=== PATIENT | female | born 1940 | race Caucasian/White ===

== ENCOUNTER 2018-09-08 18:33 | Emergency (ER) | payer MEDICARE ==
--- NOTE | 2018-09-08 21:25 | EDM.PDOC ---
ED HPI GENERAL MEDICAL PROBLEM - General Chief Complaint: Abdominal Pain Stated Complaint: ILLNESS STOMACH PAIN Time Seen by Provider: 09/08/18 21:17 Source of Information: Reports: Patient History Limitations: Reports: No Limitations - History of Present Illness INITIAL COMMENTS - FREE TEXT/NARRATIVE: pt arrived stating that when she is walking she has felt like she could fall forward. She has had slight nausea. pt was very confusing with her history she stated that she had abdomanal pain earlier and then stated that she did not. Onset: Gradual, Other ( Last 2 days. ) Duration: Hour(s): Location: Reports: Head Associated Symptoms: Reports: Other (pt feels like she is going to fall forwaRD WHEN SHE IS WALKING AT TIMES. 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: Hematologic History: Reports: Anticoagulation Therapy - Infectious Disease History Infectious Disease History: Reports: Measles, Mumps - Past Surgical History Female Surgical History: Reports: Hysterectomy Social & Family History - Tobacco Use Smoking Status *Q: Never Smoker - Caffeine Use Caffeine Use: Reports: None - Recreational Drug Use Recreational Drug Use: No ED ROS GENERAL - Review of Systems Review Of Systems: See Below Constitutional: Reports: No Symptoms HEENT: Reports: No Symptoms Respiratory: Reports: No Symptoms Cardiovascular: Reports: No Symptoms Endocrine: Reports: No Symptoms GI/Abdominal: Reports: No Symptoms : Reports: No Symptoms Musculoskeletal: Reports: No Symptoms Skin: Reports: No Symptoms Neurological: Reports: Other (PT IS FEELING LIKE SHE IS GOING TO FALL FORWARD. ) Psychiatric: Reports: No Symptoms, Homicidal Ideation ED EXAM, GI/ABD - Physical Exam Exam: See Below Text/Narrative:: PT ARRIVED WITH A VAGUE COMPLAINT OF FEELING LIKE SHE IS GOING TO FALL FORWARD ONCE IN AWHILE. sHE DID SIGN IN WITH ABDOMANAL PAIN. sHE DOES ADMIT TO SOME NAUSEA. EARLIER TODAY BUT SHE IS NOT NAUSEATED AT THIS TIME. Exam Limited By: No Limitations General Appearance: Alert, No Apparent Distress, Anxious, Other (PUPILS ARE EQUAL AND REACTIVE. ) Ears: Normal TMs Nose: Normal Inspection Throat/Mouth: Normal Inspection Head: Atraumatic Neck: Normal Inspection Respiratory/Chest: No Respiratory Distress Cardiovascular: Regular Rate, Rhythm, Other (PT HAS A PAST HISTORY OF ATRIAL FIB AND IS ON LOW DOSE COUMADIN. ) GI/Abdominal Exam: Other (PT HAS NO ABDOMANAL TENDERNESS. ) (Female) Exam: Deferred Rectal (Female) Exam: Deferred Back Exam: Normal Inspection Extremities: Normal Inspection Neurological: Alert, Oriented, Normal Cognition Psychiatric: Anxious Course - Vital Signs Last Recorded V/S: Last Vital Signs Temp 35.9 C 09/08/18 19:06 Pulse 63 09/08/18 21:27 Resp 16 09/08/18 19:06 BP 189/73 H 09/08/18 21:27 Pulse Ox 95 09/08/18 21:27 Orthostatic Blood Pressure [ 189/67 Standing] Orthostatic Blood Pressure [ 190/74 Sitting] Orthostatic Blood Pressure [ 198/75 Supine] - Orders/Labs/Meds Orders: Active Orders 24 hr Category Date Time Status EKG Documentation Completion [RC] ASDIRECTED Care 09/08/18 19:32 Active Orthostatic Vital Signs [RC] ASDIRECTED Care 09/08/18 19:33 Active EKG 12 Lead [EK] Routine Ther 09/08/18 19:32 Ordered Labs: Laboratory Tests 09/08/18 09/08/18 09/08/18 Range/Units 19:23 19:23 19:31 WBC 4.7 (4.5-11.0) K/uL RBC 4.22 (3.30-5.50) M/uL Hgb 13.3 (12.0-15.0) g/dL Hct 37.9 (36.0-48.0) % MCV 90 (80-98) fL MCH 32 H (27-31) pg MCHC 35 (32-36) % Plt Count 156 (150-400) K/uL Neut % (Auto) 62 (36-66) % Lymph % (Auto) 16 L (24-44) % [place] % (Auto) 12 H (2-6) % Eos % (Auto) 9 H (2-4) % Baso % (Auto) 1 (0-1) % PT 15.3 H (9.5-12.0) sec INR 1.45 H (0.80-1.20) Sodium 134 L (140-148) mmol/L Potassium 4.0 (3.6-5.2) mmol/L Chloride 100 (100-108) mmol/L Carbon Dioxide 25 (21-32) mmol/L Anion Gap 13.0 (5.0-14.0) mmol/L BUN 12 (7-18) mg/dL Creatinine 0.7 (0.6-1.0) mg/dL Est Cr Clr Drug Dosing 48.34 mL/min Estimated GFR (MDRD) > 60 (>60) Glucose 155 H (74-106) mg/dL Calcium 8.8 (8.5-10.1) mg/dL Total Bilirubin 1.6 H (0.2-1.0) mg/dL AST 30 (15-37) U/L ALT 27 (12-78) U/L Alkaline Phosphatase 197 H (46-116) U/L C-Reactive Protein (0.0-0.3) mg/dL Total Protein 7.4 (6.4-8.2) g/dL Albumin 3.2 L (3.4-5.0) g/dL Globulin 4.2 H (2.3-3.5) g/dL Albumin/Globulin Ratio 0.8 L (1.2-2.2) Urine Color Urine Appearance Urine pH (4.5-8.0) Ur Specific [place] (1.008-1.030) Urine Protein (NEGATIVE) mg/dL Urine Glucose (UA) (NEGATIVE) mg/dL Urine Ketones (NEGATIVE) mg/dL Urine Occult Blood (NEGATIVE) Urine Nitrite (NEGATIVE) Urine Bilirubin (NEGATIVE) Urine Urobilinogen (NORMAL) mg/dL Ur Leukocyte Esterase (NEGATIVE) Urine RBC (0-5) Urine WBC (0-5) Ur Epithelial Cells Amorphous Sediment Urine Bacteria Urine Mucus 09/08/18 09/08/18 Range/Units 20:01 20:13 WBC (4.5-11.0) K/uL RBC (3.30-5.50) M/uL Hgb (12.0-15.0) g/dL Hct (36.0-48.0) % MCV (80-98) fL MCH (27-31) pg MCHC (32-36) % Plt Count (150-400) K/uL Neut % (Auto) (36-66) % Lymph % (Auto) (24-44) % [place] % (Auto) (2-6) % Eos % (Auto) (2-4) % Baso % (Auto) (0-1) % PT (9.5-12.0) sec INR (0.80-1.20) Sodium (140-148) mmol/L Potassium (3.6-5.2) mmol/L Chloride (100-108) mmol/L Carbon Dioxide (21-32) mmol/L Anion Gap (5.0-14.0) mmol/L BUN (7-18) mg/dL Creatinine (0.6-1.0) mg/dL Est Cr Clr Drug Dosing mL/min Estimated GFR (MDRD) (>60) Glucose (74-106) mg/dL Calcium (8.5-10.1) mg/dL Total Bilirubin (0.2-1.0) mg/dL AST (15-37) U/L ALT (12-78) U/L Alkaline Phosphatase (46-116) U/L C-Reactive Protein 0.16 (0.0-0.3) mg/dL Total Protein (6.4-8.2) g/dL Albumin (3.4-5.0) g/dL Globulin (2.3-3.5) g/dL Albumin/Globulin Ratio (1.2-2.2) Urine Color Yellow Urine Appearance Clear Urine pH 7.0 (4.5-8.0) Ur Specific [place] 1.005 L (1.008-1.030) Urine Protein Negative (NEGATIVE) mg/dL Urine Glucose (UA) Normal (NEGATIVE) mg/dL Urine Ketones Negative (NEGATIVE) mg/dL Urine Occult Blood Negative (NEGATIVE) Urine Nitrite Negative (NEGATIVE) Urine Bilirubin Negative (NEGATIVE) Urine Urobilinogen Normal (NORMAL) mg/dL Ur Leukocyte Esterase Negative (NEGATIVE) Urine RBC Not seen (0-5) Urine WBC 0-5 (0-5) Ur Epithelial Cells Few Amorphous Sediment Not seen Urine Bacteria Not seen Urine Mucus Not seen - Re-Assessments/Exams Free Text/Narrative Re-Assessment/Exam: 09/08/18 23:10 PT ARRIVED WITH VAGUE HISTORY. sHE STATES WHEN SHE IS WALKING SHE FEELS LIKE SHE IS GOING TO FALL FORWARD. sHE WAS NAUSEATED BUT DID NOT VOMIT. sHE HAS NOT HAD ABDOMANAL PAIN. I 09/08/18 23:12 PT HAD A NORMAL WBC. sHE HAS A ELEVATED ALK PHOS AND HER BILIRUBIN IS ELEVATED. hER iNR IS ON THE LOWER SIDE. sHE IS IN A SINUS RHYTHM. hER ORTHOSTATICS WERE GOOD. sHE HAD A CAT SCAN OF THE HEAD WHICH WAS NORMAL. X Departure - Departure Time of Disposition: 22:56 Disposition: Home, Self-Care 01 Condition: Fair Clinical Impression: Balance problem, Elevated liver enzymes - Discharge Information Referrals: PCP,None [Primary Care Provider] - Forms: ED Department Discharge Care Plan Goals: continue same meds, rtc for a limited abdoman US, encourage fluids. - My Orders Last 24 Hours: My Active Orders 09/08/18 19:32 EKG Documentation Completion [RC] ASDIRECTED EKG 12 Lead [EK] Routine 09/08/18 19:33 Orthostatic Vital Signs [RC] ASDIRECTED - Assessment/Plan Last 24 Hours: My Active Orders 09/08/18 19:32 EKG Documentation Completion [RC] ASDIRECTED EKG 12 Lead [EK] Routine 09/08/18 19:33 Orthostatic Vital Signs [RC] ASDIRECTED
--- NOTE | 2018-09-08 22:12 | CRLCT ---
Indication: Falling forward Technique: Nonenhanced axial CT imaging through the head. Coronal reconstructions are provided. Comparison: None Findings: There is no intracranial hemorrhage, edema, or mass effect. There is mild hypodensity of the periventricular white matter likely related to chronic microvascular ischemic change. Intracranial atherosclerotic disease is noted. The ventricles are normal in size. The basal cisterns are patent. The calvarium is intact. The visualized paranasal sinuses and mastoid air cells are well aerated. Impression: No acute intracranial process. Please note that all CT scans at this facility use dose modulation, iterative reconstruction, and/or weight-based dosing when appropriate to reduce radiation dose to as low as reasonably achievable. Dictated by Jairo Ellis MD @ Sep 08 2018 10:09PM Signed by Dr. Jairo Ellis @ Sep 08 2018 10:11PM
== END 2018-09-08 23:18 | disposition home or self-care (01) ==
LOC: JP.ED 18:33
DX: R74.8 Abnormal levels of other serum enzymes (principal); R26.89 Other abnormalities of gait and mobility; I48.91 Unspecified atrial fibrillation; I10 Essential (primary) hypertension; Z88.8 Allergy status to other drugs, medicaments and biological substances; Z79.899 Other long term (current) drug therapy; Z79.01 Long term (current) use of anticoagulants
CPT/HCPCS: 36415; 70450; 80053; 81001; 85025; 85610; 86140; 93005; 93010; 99284; 99284-25

== ENCOUNTER 2018-11-22 17:54 | Emergency (ER) | payer MEDICARE ==
--- NOTE | 2018-11-22 19:59 | EDM.PDOC ---
ED HPI GENERAL MEDICAL PROBLEM - General Chief Complaint: General Stated Complaint: NECK/BACK PELVIC WARMTH??, DIZZINESS Time Seen by Provider: 11/22/18 19:45 Source of Information: Reports: Patient History Limitations: Reports: No Limitations - History of Present Illness INITIAL COMMENTS - FREE TEXT/NARRATIVE: Crystal is a 78 year old female who presents to the ED today with very vague complaints. Patient reports that at times when she bends over and then stands up she has a warm sensation that goes down her back. This happened earlier today. No symptoms currently Patient is hypertensive but reports she always is here and in clinic and her blood pressure at home is 146 systolic. Patient denies any headache, chest pain, back pain fever chills or sob. Patient had extensive work up here about a month ago which was negative for any acute findings. She has also seen her clinic provider who did "blood work" and found nothing but told patient she likely just needs to get up slower which she doesn' t do. 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 ED EXAM, GENERAL - Physical Exam Exam: See Below Exam Limited By: No Limitations General Appearance: Alert, WD/WN, No Apparent Distress Eye Exam: Bilateral Eye: EOMI, PERRL Nose: Normal Inspection Throat/Mouth: Normal Oropharynx Head: Atraumatic, Normocephalic Neck: Normal Inspection, Supple, Non-Tender Respiratory/Chest: No Respiratory Distress, Lungs Clear, Normal Breath Sounds Cardiovascular: Normal Peripheral Pulses, Regular Rate, Rhythm, No Murmur, Other (Hypertensive) Extremities: Normal Inspection, Normal Range of Motion Neurological: Alert, Oriented, CN II-XII Intact, Normal Cognition, Normal Gait, No Motor/Sensory Deficits Psychiatric: Normal Affect, Normal Mood Skin Exam: Warm, Dry, Intact Lymphatic: No Adenopathy Course - Vital Signs Last Recorded V/S: Last Vital Signs Temp 36.6 C 11/22/18 19:33 Pulse 63 11/22/18 19:39 Resp 16 11/22/18 19:33 BP 202/76 H 11/22/18 19:39 Pulse Ox 95 11/22/18 19:33 Crystal is a 78 year old female, presents to the ED today with vague complaints that are currently not present. Please refer to HPI and focused exam. Patient is hypertensive here but asymptomatic. Blood work and UA reassuring. Given lack of any current symptomatology and recent very extensive ED work up I do not feel any further testing is warranted this evening. Patient can monitor B/ P at home which she has already been doing and exam findings are reassuring with no neuro/focal deficits or other abnormalities, patient reassured and can follow up with PCP next week. Reasons to return to the ED discussed, patient agreeable to plan of care and discharged in stable condition. - Orders/Labs/Meds Labs: Laboratory Tests 11/22/18 11/22/18 11/22/18 Range/Units 19:36 20:01 20:01 WBC 4.2 L (4.5-11.0) K/uL RBC 4.64 (3.30-5.50) M/uL Hgb 14.1 (12.0-15.0) g/dL Hct 40.7 (36.0-48.0) % MCV 88 (80-98) fL MCH 30 (27-31) pg MCHC 35 (32-36) % Plt Count 177 (150-400) K/uL Neut % (Auto) 66 (36-66) % Lymph % (Auto) 22 L (24-44) % [place] % (Auto) 9 H (2-6) % Eos % (Auto) 3 (2-4) % Baso % (Auto) 1 (0-1) % Sodium 138 L (140-148) mmol/L Potassium 3.8 (3.6-5.2) mmol/L Chloride 104 (100-108) mmol/L Carbon Dioxide 25 (21-32) mmol/L Anion Gap 12.8 (5.0-14.0) mmol/L BUN 12 (7-18) mg/dL Creatinine 0.8 (0.6-1.0) mg/dL Est Cr Clr Drug Dosing 41.63 mL/min Estimated GFR (MDRD) > 60 (>60) Glucose 133 H (74-106) mg/dL Calcium 9.0 (8.5-10.1) mg/dL Urine Color Yellow (YELLOW) Urine Appearance Clear (CLEAR) Urine pH 7.0 (5.0-8.0) Ur Specific [place] 1.015 (1.008-1.030) Urine Protein Negative (NEGATIVE) mg/dL Urine Glucose (UA) Normal (NEGATIVE) mg/dL Urine Ketones Negative (NEGATIVE) mg/dL Urine Occult Blood Negative (NEGATIVE) Urine Nitrite Negative (NEGATIVE) Urine Bilirubin Negative (NEGATIVE) Urine Urobilinogen 1.0 (0.2-1.0) EU/dL Ur Leukocyte Esterase Negative (NEGATIVE) Urine RBC 0-5 (0-5) Urine WBC 0-5 (0-5) Ur Epithelial Cells Rare Amorphous Sediment Not seen Urine Bacteria Rare Urine Mucus Not seen Departure - Departure Time of Disposition: 21:00 Disposition: Home, Self-Care 01 Condition: Good Clinical Impression: Feared complaint without diagnosis - Discharge Information Referrals: PCP,None [Primary Care Provider] - Forms: ED Department Discharge Additional Instructions: Crystal, your blood work and urine are normal and reassuring. I do not have a good answer for your symptoms but it is unlikely that there is any cause for concern. Please follow up with your primary care provider next week to further discuss. I did look up your last ED visit with Dr. Strong, all of those results looked good as well.
== END 2018-11-22 20:37 | disposition home or self-care (01) ==
LOC: JP.ED 17:54
DX: Z71.1 Person with feared health complaint in whom no diagnosis is made (principal); Z88.8 Allergy status to other drugs, medicaments and biological substances; I10 Essential (primary) hypertension; I48.91 Unspecified atrial fibrillation; Z79.01 Long term (current) use of anticoagulants
CPT/HCPCS: 36415; 80048; 81001; 85025; 99283

== ENCOUNTER 2018-11-28 22:55 | Emergency (ER) | payer MEDICARE ==
--- NOTE | 2018-11-29 00:44 | EDM.PDOC ---
ED HPI GENERAL MEDICAL PROBLEM - General Chief Complaint: Back Pain or Injury Stated Complaint: WARM SENSATION IN THE BACK OF NECK Time Seen by Provider: 11/29/18 00:43 Source of Information: Reports: Patient History Limitations: Reports: No Limitations - History of Present Illness INITIAL COMMENTS - FREE TEXT/NARRATIVE: pt arrived having a burning sensation in the post cervical area. She describes a old neck injury when she had a chair collapse and she hit her neck on something. Onset: Other (pt states her pain has been steady today where usually it comes and goes. ) Duration: Hour(s): Location: Reports: Neck, Other ( the pain does not radiate over her shoulders. ) Associated Symptoms: Reports: No Other Symptoms denies pain Pain Score (Numeric/FACES): 0 - Related Data Allergies Allergy/AdvReac Type Severity Reaction Status Date / Time clonidine Allergy Lightheaded Verified 11/22/18 19:35 ness Home Meds: Home Meds Cholecalciferol (Vitamin D3) [Vitamin D3] 1 tab PO DAILY 12/15/17 [History] Diltiazem HCl [Cartia Xt] 240 mg PO DAILY 12/15/17 [History] Metoprolol Tartrate 50 mg PO BID 12/15/17 [History] Warfarin Sodium [Jantoven] 5 mg PO BEDTIME 09/08/18 [History] Past Medical History HEENT History: Reports: Impaired Vision Cardiovascular History: Reports: Afib, Hypertension 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: Hematologic History: Reports: Anticoagulation Therapy - Infectious Disease History Infectious Disease History: Reports: Measles, Mumps - Past Surgical History Female Surgical History: Reports: Hysterectomy Social & Family History - Family History Family Medical History: Noncontributory - Tobacco Use Smoking Status *Q: Never Smoker - Caffeine Use Caffeine Use: Reports: Coffee Caffeine Use Comment: decaf coffee only, diet drinks every day - Recreational Drug Use Recreational Drug Use: No ED ROS GENERAL - Review of Systems Review Of Systems: See Below Constitutional: Reports: No Symptoms HEENT: Reports: No Symptoms Respiratory: Reports: No Symptoms Cardiovascular: Reports: No Symptoms Endocrine: Reports: No Symptoms GI/Abdominal: Reports: No Symptoms : Reports: No Symptoms Musculoskeletal: Reports: Other (pain in the post cervical area. ) Skin: Reports: No Symptoms ED EXAM, UPPER BACK/NECK PAIN - Physical Exam Exam: See Below Text/Narrative:: pt arrived with a burning discomfort in the post cervical area. Exam Limited By: No Limitations General Appearance: Alert, Anxious, Other (pupils are equal and reaxtive. ) Ears Exam: Normal TMs Nose Exam: Normal Inspection Throat/Mouth Exam: Normal Inspection Head Exam: Atraumatic Neck Exam: Other (pt has prominence of the upper ervical spine, there is muscle spasm and tenderness present. ) Cardiovascular/Respiratory: Regular Rate, Rhythm GI/Abdominal: Soft, Non-Tender Back Exam: Normal Inspection Extremities: Normal Inspection Neurologic: Alert, Oriented x 3 Course - Vital Signs Last Recorded V/S: Last Vital Signs Temp Pulse 61 11/29/18 00:09 Resp 16 11/29/18 00:09 BP 166/59 H 11/29/18 00:09 Pulse Ox 97 11/29/18 00:09 - Orders/Labs/Meds Orders: Active Orders 24 hr Category Date Time Status Cervical Spine wo Cont [CT] Stat Exams 11/29/18 00:42 Taken Baclofen [Lioresal] Med 11/29/18 01:38 Once 10 mg PO ONETIME ONE - Re-Assessments/Exams Free Text/Narrative Re-Assessment/Exam: 11/29/18 01:51 cat scan of the cervical spine shows fusion of c2 and c3. She has alot of degenerative changes present. pt was given balofen 10 mg and a lidocaine patch for tonight. Departure - Departure Time of Disposition: 01:52 Disposition: Home, Self-Care 01 Condition: Fair Clinical Impression: Cervical paraspinal muscle spasm, Degenerative disc disease, cervical - Discharge Information Referrals: PCP,None [Primary Care Provider] - Forms: ED Department Discharge Care Plan Goals: moist warm packs to the area, baclofen 10 mg qam, consider physical therapy to the neck. - My Orders Last 24 Hours: My Active Orders 11/29/18 00:42 Cervical Spine wo Cont [CT] Stat 11/29/18 01:38 Baclofen [Lioresal] 10 mg PO ONETIME ONE - Assessment/Plan Last 24 Hours: My Active Orders 11/29/18 00:42 Cervical Spine wo Cont [CT] Stat 11/29/18 01:38 Baclofen [Lioresal] 10 mg PO ONETIME ONE
[2018-11-29] MEDS ORDERED: Baclofen 10 MG Tab PO ONE (01:38)
[2018-11-29] MEDS ORDERED: Lidocaine 5% 700 MG Patch TOP ONE (01:44)
--- NOTE | 2018-11-29 01:47 | CRLCT ---
INDICATION: Burning pain TECHNIQUE: CT cervical spine without contrast. COMPARISON: None available FINDINGS: There is straightening of the cervical lordosis. The craniocervical and atlantoaxial alignments are near anatomical. There is no evidence of an acute cervical spine fracture. There is no significant precervical soft tissue swelling. There are multilevel degenerative changes. There is partial fusion of C2 and C3. There is an ill-defined inferior left thyroid lesion. Scarring is noted at the lung apices. IMPRESSION: No evidence of an acute cervical spine fracture. Multilevel degenerative changes. If indicated, correlate with MRI evaluation. A left thyroid lesion. Follow-up with nonemergent sonography. Dictated by Isacc Alba MD @ 11/29/2018 1:46:22 AM Please note that all CT scans at this facility use dose modulation, iterative reconstruction, and/or weight-based dosing when appropriate to reduce radiation dose to as low as reasonably achievable. Dictated by: Isacc Alba MD @ 11/29/2018 01:46:35 (Electronically Signed)
== END 2018-11-29 02:16 | disposition home or self-care (01) ==
LOC: JP.ED 22:55
DX: M50.31 Other cervical disc degeneration, high cervical region (principal); M62.838 Other muscle spasm; I10 Essential (primary) hypertension; I48.91 Unspecified atrial fibrillation; Z79.01 Long term (current) use of anticoagulants; Z88.5 Allergy status to narcotic agent; Z79.899 Other long term (current) drug therapy; Z90.710 Acquired absence of both cervix and uterus
CPT/HCPCS: 72125; 99283; A9270

== ENCOUNTER 2019-09-06 20:51 | Emergency (ER) | payer MEDICARE ==
--- NOTE | 2019-09-06 21:48 | EDM.PDOC ---
ED HPI GENERAL MEDICAL PROBLEM - General Chief Complaint: General Stated Complaint: NECK PAIN Time Seen by Provider: 09/06/19 21:30 Source of Information: Reports: Patient, Family History Limitations: Reports: No Limitations - History of Present Illness INITIAL COMMENTS - FREE TEXT/NARRATIVE: 70-year-old female with intermittent spasms of her neck that are very painful, they usually do not last longer than 5 to 10 minutes but today she had one that lasted 1/2-hour so she wanted to come in and talk about it. She has no pain at this time. Onset: Sudden Duration: Other (Pain lasts several minutes up to 30 minutes) Location: Reports: Neck Associated Symptoms: Reports: No Other Symptoms Posterior Neck Pain Score (Numeric/FACES): 10 - Related Data Allergies Allergy/AdvReac Type Severity Reaction Status Date / Time clonidine Allergy Lightheaded Verified 09/06/19 21:18 ness Home Meds: Home Meds Cholecalciferol (Vitamin D3) [Vitamin D3] 1 tab PO DAILY 12/15/17 [History] Metoprolol Tartrate 50 mg PO BID 12/15/17 [History] [id number] HCL [Cartia Xt] 240 mg PO DAILY 12/15/17 [History] Warfarin Sodium [Jantoven] 5 mg PO BEDTIME 09/08/18 [History] Baclofen 10 mg PO DAILY 09/06/19 [History] Past Medical History HEENT History: Reports: Impaired Vision Cardiovascular History: Reports: Afib, Hypertension 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: Hematologic History: Reports: Anticoagulation Therapy - Infectious Disease History Infectious Disease History: Reports: Chicken Pox - Past Surgical History Female Surgical History: Reports: Hysterectomy Social & Family History - Family History Family Medical History: Noncontributory - Tobacco Use Smoking Status *Q: Never Smoker - Caffeine Use Caffeine Use: Reports: Coffee Caffeine Use Comment: decaffeinated - Recreational Drug Use Recreational Drug Use: No ED ROS GENERAL - Review of Systems Review Of Systems: See Below Constitutional: Denies: Fever, Chills HEENT: Reports: No Symptoms Respiratory: Denies: Shortness of Breath Cardiovascular: Denies: Chest Pain GI/Abdominal: Denies: Abdominal Pain, Nausea, Vomiting Skin: Reports: No Symptoms Neurological: Denies: Paresthesia (Denies paresthesias of the upper extremities during the neck pain) ED EXAM, GENERAL - Physical Exam Exam: See Below Exam Limited By: No Limitations General Appearance: Alert, No Apparent Distress Head: Atraumatic Neck: Supple, Non-Tender Respiratory/Chest: Lungs Clear Neurological: Alert, Oriented, No Motor/Sensory Deficits Psychiatric: Normal Affect, Normal Mood Skin Exam: Warm, Dry Course - Vital Signs Last Recorded V/S: Last Vital Signs Temp 97.2 F 09/06/19 21:23 Pulse 72 09/06/19 21:23 Resp 18 09/06/19 21:23 BP 162/72 H 09/06/19 21:23 Pulse Ox 96 09/06/19 21:23 - Re-Assessments/Exams Free Text/Narrative Re-Assessment/Exam: 09/07/19 03:43 Had a long discussion with the patient about possible therapeutic options. She feels fine at this time, and decided not to add any medications but will talk to her primary provider about Botox, local injections or other alternative methods for pain control. Departure - Departure Time of Disposition: 22:26 Disposition: Home, Self-Care 01 Clinical Impression: Muscle spasms of neck - Discharge Information Instructions: Muscle Cramps and Spasms, [id number] Referrals: PCP,None [Primary Care Provider] - Forms: ED Department Discharge Care Plan Goals: Continue with your baclofen and other medications as prescribed. Consider talking to your regular physician about Botox or local steroid injections as an alternative to medication. Sepsis Event Note (ED) - Evaluation Sepsis Screening Result: No Definite Risk - Focused Exam Vital Signs: Vital Signs Temp Pulse Resp BP Pulse Ox 09/06/19 21:23 97.2 F 72 18 162/72 H 96 09/06/19 21:16 97.2 F 72 18 162/72 H 96
== END 2019-09-06 22:26 | disposition home or self-care (01) ==
LOC: JP.ED 20:51
DX: M62.838 Other muscle spasm (principal); I10 Essential (primary) hypertension; I48.91 Unspecified atrial fibrillation; Z79.899 Other long term (current) drug therapy; Z88.8 Allergy status to other drugs, medicaments and biological substances
CPT/HCPCS: 99282; 99283

== ENCOUNTER 2019-12-06 14:57 | Inpatient (IN) | payer MEDICARE ==
--- NOTE | 2019-12-06 15:47 | EDM.PDOC ---
ED HPI GENERAL MEDICAL PROBLEM - General Chief Complaint: General Stated Complaint: FELL AT HOME. DIMENTIA ISSUES Time Seen by Provider: 12/06/19 15:41 Source of Information: Reports: Patient History Limitations: Reports: No Limitations - History of Present Illness INITIAL COMMENTS - FREE TEXT/NARRATIVE: PT HAD AN EPISODE WHERE SHE SLIDE OFF OF THE BED. sHE WAS VERY FLOPY AND NOT RESPONDING. sHE WAS RESPONSIVE WHEN THE AMBULANCE GOT THERE. sHE WAS CONFUSED. hER BASELINE IS THE HISTORY OF DEMENTIA. Onset: Other ( THE EPISODE OF BEING UNRESPONSIVE WAS SUDDEN TODAY. ) Duration: Hour(s): Location: Reports: Head Associated Symptoms: Reports: Syncope, Weakness - Related Data Allergies Allergy/AdvReac Type Severity Reaction Status Date / Time clonidine Allergy Lightheaded Verified 09/06/19 21:18 ness Home Meds: Home Meds Cholecalciferol (Vitamin D3) [Vitamin D3] 1 tab PO DAILY 12/15/17 [History] Metoprolol Tartrate 50 mg PO BID 12/15/17 [History] dilTIAZem HCL [Cartia Xt] 240 mg PO DAILY 12/15/17 [History] Warfarin Sodium [Jantoven] 5 mg PO BEDTIME 09/08/18 [History] Baclofen 10 mg PO DAILY 09/06/19 [History] Past Medical History HEENT History: Reports: Impaired Vision Cardiovascular History: Reports: Afib, Hypertension 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: Hematologic History: Reports: Anticoagulation Therapy - Infectious Disease History Infectious Disease History: Reports: Chicken Pox - Past Surgical History Female Surgical History: Reports: Hysterectomy Social & Family History - Family History Family Medical History: Noncontributory - Tobacco Use Smoking Status *Q: Never Smoker - Caffeine Use Caffeine Use: Reports: Coffee, Soda Caffeine Use Comment: decaffeinated - Recreational Drug Use Recreational Drug Use: No ED ROS GENERAL - Review of Systems Review Of Systems: See Below Constitutional: Reports: Weakness, Other (PT WAS NOT RESPONDING FOR A PERIOD OF TIME. ) HEENT: Reports: No Symptoms Respiratory: Reports: No Symptoms Cardiovascular: Reports: Other (PT HAS A VERY SLOW HEART RATE IN THE 30S. sHE HAS A HISTOY OF ATRIAL FIB. ) Endocrine: Reports: No Symptoms GI/Abdominal: Reports: No Symptoms : Reports: No Symptoms Musculoskeletal: Reports: No Symptoms Skin: Reports: No Symptoms Neurological: Reports: Confusion Psychiatric: Reports: Confusion ED EXAM, GENERAL - Physical Exam Exam: See Below Free Text/Narrative:: PT ARRIVED AFTER HAVING A EPISODE WHERE SHE WAS UNRESPONSIVE AND VERY FLOPPY. sHE WAS SO WEAK WHEN SHE DID WAKE UP THAT SHE WAS NOT ABLE TO HELP. GET UP ON THE BED sHE HAS A BASE LINE OF CONFUSION. Exam Limited By: No Limitations General Appearance: Alert, No Apparent Distress, Anxious, Other (PUPILS ARE EQUAL AND REACTIVE. ) Ears: Normal TMs Nose: Normal Inspection Throat/Mouth: Normal Inspection Head: Atraumatic Neck: Normal Inspection Respiratory/Chest: No Respiratory Distress Cardiovascular: Regular Rate, Rhythm, Bradycardia, Other ( RATE IS 34-- HER RHYTHM IS ATRIAL FIB. ) GI/Abdominal: Soft, Non-Tender (Female) Exam: Deferred Rectal (Female) Exam: Deferred Back Exam: Normal Inspection Extremities: Normal Inspection Neurological: Alert Course - Vital Signs Last Recorded V/S: Last Vital Signs Temp 36.4 C 12/06/19 23:13 Pulse 33 L 12/06/19 18:17 Resp 14 12/07/19 05:59 BP 141/42 H 12/07/19 05:59 Pulse Ox 96 12/07/19 05:59 - Orders/Labs/Meds Orders: Active Orders 24 hr Category Date Time Status Cardiac Monitoring [RC] Q6H Care 12/06/19 15:54 Active EKG Documentation Completion [RC] ASDIRECTED Care 12/06/19 15:55 Active EKG 12 Lead [EK] Routine Ther 12/06/19 15:54 Ordered Medication Orders Acetaminophen (Tylenol) 650 mg PO Q4H PRN PRN Reason: Pain (Mild 1-3)/fever Baclofen (Lioresal) 10 mg PO DAILY [facility] Cholecalciferol (Vitamin D3) 50 mcg PO DAILY [facility] Docusate Sodium (Colace) 100 mg PO BID PRN PRN Reason: Constipation Sodium Chloride (Normal Saline) 1,000 mls @ 75 mls/hr IV ASDIRECTED [facility] Last Admin: 12/06/19 20:28 Dose: 75 mls/hr Documented by: ROWDY Ondansetron HCl (Zofran Odt) 4 mg PO Q6H PRN PRN Reason: Nausea able to take PO Warfarin Sodium (Coumadin) 5 mg PO BEDTIME [facility] Last Admin: 12/06/19 21:16 Dose: 5 mg Documented by: ROWDY Labs: Laboratory Tests 12/06/19 12/06/19 12/06/19 Range/Units 16:08 16:08 16:08 WBC 8.6 (4.5-11.0) K/uL RBC 4.43 (3.30-5.50) M/uL Hgb 13.2 (12.0-15.0) g/dL Hct 38.7 (36.0-48.0) % MCV 87 (80-98) fL MCH 30 (27-31) pg MCHC 34 (32-36) % Plt Count 172 (150-400) K/uL Neut % (Auto) 83 H (36-66) % Lymph % (Auto) 9 L (24-44) % Josephine % (Auto) 7 H (2-6) % Eos % (Auto) 1 L (2-4) % Baso % (Auto) 0 (0-1) % PT (9.5-12.0) sec INR (0.80-1.20) Sodium 131 L (140-148) mmol/L Potassium 4.9 (3.6-5.2) mmol/L Chloride 99 L (100-108) mmol/L Carbon Dioxide 27 (21-32) mmol/L Anion Gap 9.9 (5.0-14.0) mmol/L BUN 20 H D (7-18) mg/dL Creatinine 1.3 H D (0.6-1.0) mg/dL Est Cr Clr Drug Dosing 25.20 mL/min Estimated GFR (MDRD) 40 L (>60) Glucose 191 H (74-106) mg/dL Calcium 11.0 H D (8.5-10.1) mg/dL Total Bilirubin 1.8 H (0.2-1.0) mg/dL AST 56 H D (15-37) U/L ALT 29 (12-78) U/L Alkaline Phosphatase 213 H (46-116) U/L Troponin I < 0.017 (0.000-0.056) ng/mL Total Protein 7.1 (6.4-8.2) g/dL Albumin 2.9 L (3.4-5.0) g/dL Globulin 4.2 H (2.3-3.5) g/dL Albumin/Globulin Ratio 0.7 L (1.2-2.2) 12/06/19 Range/Units 16:13 WBC (4.5-11.0) K/uL RBC (3.30-5.50) M/uL Hgb (12.0-15.0) g/dL Hct (36.0-48.0) % MCV (80-98) fL MCH (27-31) pg MCHC (32-36) % Plt Count (150-400) K/uL Neut % (Auto) (36-66) % Lymph % (Auto) (24-44) % Josephine % (Auto) (2-6) % Eos % (Auto) (2-4) % Baso % (Auto) (0-1) % PT 16.5 H (9.5-12.0) sec INR 1.53 H (0.80-1.20) Sodium (140-148) mmol/L Potassium (3.6-5.2) mmol/L Chloride (100-108) mmol/L Carbon Dioxide (21-32) mmol/L Anion Gap (5.0-14.0) mmol/L BUN (7-18) mg/dL Creatinine (0.6-1.0) mg/dL Est Cr Clr Drug Dosing mL/min Estimated GFR (MDRD) (>60) Glucose (74-106) mg/dL Calcium (8.5-10.1) mg/dL Total Bilirubin (0.2-1.0) mg/dL AST (15-37) U/L ALT (12-78) U/L Alkaline Phosphatase (46-116) U/L Troponin I (0.000-0.056) ng/mL Total Protein (6.4-8.2) g/dL Albumin (3.4-5.0) g/dL Globulin (2.3-3.5) g/dL Albumin/Globulin Ratio (1.2-2.2) Meds: Medications Generic Name Dose Route Start Last Admin Trade Name Freq PRN Reason Stop Dose Admin Acetaminophen 650 mg 12/06/19 18:56 Tylenol PO Q4H PRN Pain (Mild 1-3)/fever Baclofen 10 mg 12/07/19 09:00 Lioresal PO DAILY [facility] Cholecalciferol 50 mcg 12/07/19 09:00 Vitamin D3 PO DAILY GARY Docusate Sodium 100 mg 12/06/19 18:56 Colace PO BID PRN Constipation Sodium Chloride 1,000 mls @ 75 mls/hr 12/06/19 18:56 12/06/19 20:28 Normal Saline IV 75 mls/hr ASDIRECTED GARY Administration Ondansetron HCl 4 mg 12/06/19 18:56 Zofran Odt PO Q6H PRN Nausea able to take PO Warfarin Sodium 5 mg 12/06/19 21:00 12/06/19 21:16 Coumadin PO 5 mg BEDTIME GARY Administration Discontinued Medications Generic Name Dose Route Start Last Admin Trade Name Freq PRN Reason Stop Dose Admin Sodium Chloride 1,000 mls @ 300 mls/hr 12/06/19 16:45 12/06/19 17:29 Normal Saline IV 300 mls/hr ASDIRECTED GARY Administration Sodium Chloride 1,000 mls @ 999 mls/hr 12/06/19 21:00 12/06/19 21:05 Normal Saline IV 12/06/19 22:00 999 mls/hr ONETIME ONE Administration - Re-Assessments/Exams Free Text/Narrative Re-Assessment/Exam: 12/06/19 17:13 PT HAS A ELEVATION IN HER CALCIUM. sHE HAS A ELEVATED CREATNINE. Departure - Departure Time of Disposition: 06:00 Disposition: Admitted As Inpatient 66 Condition: Fair Clinical Impression: Dementia, Bradycardia, Serum calcium elevated, Atrial fibrillation - Discharge Information - My Orders Last 24 Hours: My Active Orders 12/06/19 15:54 Cardiac Monitoring [RC] Q6H EKG 12 Lead [EK] Routine 12/06/19 15:55 EKG Documentation Completion [RC] ASDIRECTED - Assessment/Plan Last 24 Hours: My Active Orders 12/06/19 15:54 Cardiac Monitoring [RC] Q6H EKG 12 Lead [EK] Routine 12/06/19 15:55 EKG Documentation Completion [RC] ASDIRECTED
[2019-12-06] MEDS ORDERED: Sodium Chloride 0.9% 1,000 ML IV SCH (16:45)
--- NOTE | 2019-12-06 18:34 | PCM.HP.2 ---
H&P History of Present Illness - General Date of Service: 12/06/19 Admit Problem/Dx: Admission Diagnosis/Problem Admission Diagnosis/Problem Bradycardia with 41 - 50 beats per minute 1. Episode of unresponsiveness 2. Severe bradycardia 3. Known h/o atrial fibrillation 4. Possible medication effect 5. 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 Crystal De Oliveira is a 79 yo F admitted to the ICU at [facility] on 06 December 2019. The patient was transported to the ED via EMS after she had had an episode of unresponsiveness at home. Despite her 's best efforts, he was unable to get her up on her feet and moving. During the episode he noted that the patient was "floppy" and "appeared to be ". He could not "find a pulse on her" at that time. He notes that about 2 months ago during what sounds like a Medicare Wellness check she had her diltiazem increased up to 240 mg po q day and her metoprolol increased to 50 mg po bid. Ever since that time the patient had been, per history, having more difficulties with lightheadedness and just "not feeling quite right". 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 The patient, for her part, is mildly demented and has quite a bit of difficulty giving medical history. The , is generally coherent, but does occasionally get confused. The patient's evaluation in the ED did show evidence of profound bradycardia with HR in the 30-35 range. The patient has, thus far, remained entire asymptomatic. The patient did, however, have some soft pressures as she was preparing to be transferred from the ED to ICU. The patient is a FULL CODE. Further the and both emphasize that they would like everything to be done that can be done. They are amenable to possible transfer to [place] or [place] if her condition deteriorates. I've discussed the case and plan of care with the ED, ICU teams. I will brief the cross cover as well. Onset of Symptoms: Reports: Today, Other (With at least 2 prior episodes over the past 10 days) - Related Data Allergies/Adverse Reactions: Allergies Allergy/AdvReac Type Severity Reaction Status Date / Time clonidine Allergy Lightheaded Verified 09/06/19 21:18 ness Home Medications: Home Meds Cholecalciferol (Vitamin D3) [Vitamin D3] 1 tab PO DAILY 12/15/17 [History] Metoprolol Tartrate 50 mg PO BID 12/15/17 [History] dilTIAZem HCL [Cartia Xt] 240 mg PO DAILY 12/15/17 [History] Warfarin Sodium [Jantoven] 5 mg PO BEDTIME 09/08/18 [History] Baclofen 10 mg PO DAILY 09/06/19 [History] Past Medical History HEENT History: Reports: Impaired Vision Cardiovascular History: Reports: Afib, Hypertension 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: Hematologic History: Reports: Anticoagulation Therapy - Infectious Disease History Infectious Disease History: Reports: Chicken Pox - Past Surgical History Female Surgical History: Reports: Hysterectomy Social & Family History - Family History Family Medical History: Noncontributory - Tobacco Use Smoking Status *Q: Never Smoker - Caffeine Use Caffeine Use: Reports: Coffee, Soda Caffeine Use Comment: decaffeinated - Recreational Drug Use Recreational Drug Use: No H&P Review of Systems - Review of Systems: Review Of Systems: See Below General: Reports: Weakness, Fatigue HEENT: Reports: No Symptoms Pulmonary: Reports: No Symptoms Cardiovascular: Reports: Syncope Gastrointestinal: Reports: No Symptoms Genitourinary: Reports: No Symptoms Musculoskeletal: Reports: No Symptoms Skin: Reports: No Symptoms Psychiatric: Reports: Confusion Neurological: Reports: No Symptoms Exam - Exam Exam: See Below - Vital Signs Vital Signs: Last Vital Signs Temp 96.6 F L 12/06/19 15:43 Pulse 33 L 12/06/19 18:17 Resp 10 L 12/06/19 18:17 BP 90/41 L 12/06/19 18:17 Pulse Ox 91 L 12/06/19 17:20 Weight: 145 lb - Exam Quality Assessment: DVT Prophylaxis. No: Supplemental Oxygen, Central Line/PICC, Urinary Catheter, Skin Breakdown General: Alert, Cooperative HEENT: PERRLA, EOMI, Mucosa Moist & [place], Posterior Pharynx Clear, Pupils Equal, Pupils Reactive Neck: Supple, Trachea Midline Lungs: Clear to Auscultation, Normal Respiratory Effort Cardiovascular: Regular Rhythm, Normal S1, Normal S2, Bradycardia GI/Abdominal Exam: Normal Bowel Sounds, Soft, Non-Tender, No Organomegaly, No Distention, No Abnormal Bruit, No Mass Back Exam: Normal Inspection, Full Range of Motion Extremities: Normal Inspection, Normal Range of Motion, Non-Tender, No Pedal Edema, Normal Capillary Refill Peripheral Pulses: 4+: Posterior Tibial (L), Posterior Tibial (R), Dorsalis Pedis (L), Dorsalis Pedis (R) Skin: Warm, Dry, Intact Neurological: Cranial Nerves Intact, Reflexes Equal Bilateral Neuro Extensive - Mental Status: Alert, Normal Mood/Affect, Memory Loss-Remote Events, Memory Loss-Recent Events Neuro Extensive - Motor, Sensory, Reflexes: CN II-XII Intact, Normal Reflexes DTR: 2+: Patella (L), Patella (R) Psychiatric: Alert, Normal Affect, Normal Mood - Patient Data Lab Results Last 24 hrs: Laboratory Results - last 24 hr 12/06/19 12/06/19 12/06/19 Range/Units 16:08 16:08 16:08 WBC 8.6 (4.5-11.0) K/uL RBC 4.43 (3.30-5.50) M/uL Hgb 13.2 (12.0-15.0) g/dL Hct 38.7 (36.0-48.0) % MCV 87 (80-98) fL MCH 30 (27-31) pg MCHC 34 (32-36) % Plt Count 172 (150-400) K/uL Neut % (Auto) 83 H (36-66) % Lymph % (Auto) 9 L (24-44) % [place] % (Auto) 7 H (2-6) % Eos % (Auto) 1 L (2-4) % Baso % (Auto) 0 (0-1) % PT (9.5-12.0) sec INR (0.80-1.20) Sodium 131 L (140-148) mmol/L Potassium 4.9 (3.6-5.2) mmol/L Chloride 99 L (100-108) mmol/L Carbon Dioxide 27 (21-32) mmol/L Anion Gap 9.9 (5.0-14.0) mmol/L BUN 20 H D (7-18) mg/dL Creatinine 1.3 H D (0.6-1.0) mg/dL Est Cr Clr Drug Dosing 25.20 mL/min Estimated GFR (MDRD) 40 L (>60) Glucose 191 H (74-106) mg/dL Calcium 11.0 H D (8.5-10.1) mg/dL Total Bilirubin 1.8 H (0.2-1.0) mg/dL AST 56 H D (15-37) U/L ALT 29 (12-78) U/L Alkaline Phosphatase 213 H (46-116) U/L Troponin I < 0.017 (0.000-0.056) ng/mL Total Protein 7.1 (6.4-8.2) g/dL Albumin 2.9 L (3.4-5.0) g/dL Globulin 4.2 H (2.3-3.5) g/dL Albumin/Globulin Ratio 0.7 L (1.2-2.2) 12/06/19 Range/Units 16:13 WBC (4.5-11.0) K/uL RBC (3.30-5.50) M/uL Hgb (12.0-15.0) g/dL Hct (36.0-48.0) % MCV (80-98) fL MCH (27-31) pg MCHC (32-36) % Plt Count (150-400) K/uL Neut % (Auto) (36-66) % Lymph % (Auto) (24-44) % [place] % (Auto) (2-6) % Eos % (Auto) (2-4) % Baso % (Auto) (0-1) % PT 16.5 H (9.5-12.0) sec INR 1.53 H (0.80-1.20) Sodium (140-148) mmol/L Potassium (3.6-5.2) mmol/L Chloride (100-108) mmol/L Carbon Dioxide (21-32) mmol/L Anion Gap (5.0-14.0) mmol/L BUN (7-18) mg/dL Creatinine (0.6-1.0) mg/dL Est Cr Clr Drug Dosing mL/min Estimated GFR (MDRD) (>60) Glucose (74-106) mg/dL Calcium (8.5-10.1) mg/dL Total Bilirubin (0.2-1.0) mg/dL AST (15-37) U/L ALT (12-78) U/L Alkaline Phosphatase (46-116) U/L Troponin I (0.000-0.056) ng/mL Total Protein (6.4-8.2) g/dL Albumin (3.4-5.0) g/dL Globulin (2.3-3.5) g/dL Albumin/Globulin Ratio (1.2-2.2) Result Diagrams: 12/06/19 16:08 12/06/19 16:08 Sepsis Event Note - Evaluation Sepsis Screening Result: No Definite Risk - Focused Exam Vital Signs: Vital Signs Temp Pulse Resp BP Pulse Ox 12/06/19 18:17 33 L 10 L 90/41 L 12/06/19 17:20 36 L 13 117/51 L 91 L 12/06/19 16:03 34 L 15 116/45 L 97 12/06/19 15:43 96.6 F L 36 L 12 114/44 L 98 12/06/19 15:33 35 L 13 125/47 L 98 12/06/19 15:18 36 L 12 114/44 L 98 12/06/19 14:57 96.6 F L 35 L 16 121/43 L 97 Problem List Initiated/Reviewed/Updated: Yes Orders Last 24hrs: Active Orders 24 hr Category Date Time Status Patient Status Manage Transfer [TRANSFER] Routine ADT 12/06/19 18:04 Active Cardiac Monitoring [RC] .As Directed Care 12/06/19 15:54 Active EKG Documentation Completion [RC] ASDIRECTED Care 12/06/19 15:55 Active Baclofen [Lioresal] Med 12/07/19 09:00 Ordered 10 mg PO DAILY Cholecalciferol (Vitamin D3) [Vitamin D3] Med 12/07/19 09:00 Ordered 1 tab PO DAILY Sodium Chloride 0.9% [Normal Saline] 1,000 ml Med 12/06/19 16:45 Active IV ASDIRECTED Warfarin Sodium [Jantoven] Med 12/06/19 21:00 Ordered 5 mg PO BEDTIME Resuscitation Status Routine Resus Stat 12/06/19 18:07 Ordered EKG 12 Lead [EK] Routine Ther 12/06/19 15:54 Ordered Medication Orders Baclofen (Lioresal) 10 mg PO DAILY [facility]ARY Sodium Chloride (Normal Saline) 1,000 mls @ 300 mls/hr IV ASDIRECTED GARY Last Admin: 12/06/19 17:29 Dose: 300 mls/hr Documented by: EDDIE Non-Formulary Medication (Cholecalciferol (Vitamin D3) [Vitamin D3]) 1 tab PO DAILY [facility] Non-Formulary Medication (Warfarin Sodium [Jantoven]) 5 mg PO BEDTIME GARY Assessment/Plan Comment:: Assessment and Plan: 1. HEENT No active issues 2. Cardiovascular Patient presented after an unresponsive episode. Per history this seems to be linked back to a medication change 2 months ago. Concerning to me is the escalation of episodes within the past week and there being more and more of these events in that time frame. The patient this week alone has had 3 episodes. I am in agreement with the ED that this is most likely due to the medications. However, I have a very low threshhold to send the patient to a referral center should she deteriorate. - Hold diltiazem - Hold metoprolol - Continue Anticoagulation - IV fluids - Close observation of vitals - If pressures trend below MAP 60 - Patient becomes unresponsive or obtunded - If hemodynamically unstable would favor transfer to outside facilities - Continue telemetry - Monitor in ICU - I appreciate Dr. Elizalde being available for possible emergent pacemaker placement if needed 3. Respiratory/Gastrointestinal Stable w/o active issues 4. Renal Stable w/o active issues 5. F/E/N Correct electrolytes as needed 6. Endocrine No active issues 7. Infectious Diseases No signs of COVID 19 or other illness 8. Neurological/Musculoskeletal Patient is mild to moderately demented. - OT eval when stable from cardiac standpoint - OK to continue baclofen for now 9. Mental Health Stable except as above Disposition: Anticipate D/C 2-3 days Jurgen Driver M.D. 06 December 2019 - Mortality Measure Prognosis:: Good
[2019-12-06] MEDS ORDERED: Ondansetron 4 MG Tab.DIS PO PRN (18:56)
[2019-12-06] MEDS ORDERED: Docusate Sodium 100 MG Cap PO PRN (18:56)
[2019-12-06] MEDS ORDERED: Acetaminophen 325 MG Tab PO PRN (18:56)
[2019-12-06] MEDS: Sodium Chloride 0.9% 1,000 ML IV SCH (20:28)
[2019-12-06] MEDS ORDERED: Sodium Chloride 0.9% 1,000 ML IV ONE (21:00)
[2019-12-06] MEDS ORDERED: Warfarin 5 MG Tab PO SCH (21:00)
[2019-12-07] MEDS ORDERED: Cholecalciferol (Vitamin D3) 25 MCG Tab PO SCH (09:00)
[2019-12-07] MEDS ORDERED: Baclofen 10 MG Tab PO SCH (09:00)
--- NOTE | 2019-12-07 10:02 | PCM.PN ---
- General Info Date of Service: 12/07/19 Admission Dx/Problem (Free Text): 1. Bradycardia 2. Episode of unresponsiveness 3. Medication effect 4. Transient hypotension 5. Oliguria Subjective Update: Patient is noted to be generally feeling more awake, alert this AM. HR have increased to mid 70's this AM. Patient did have some issues with hypotension and low urine output but this seems to have improved overnight with the administration of 1-2 L NS. Patient is off of both medications (metoprolol and diltiazem). She denies any other issues today. Functional Status: Reports: Tolerating Diet - Review of Systems General: Reports: No Symptoms HEENT: Reports: No Symptoms Pulmonary: Reports: No Symptoms Cardiovascular: Reports: No Symptoms Gastrointestinal: Reports: No Symptoms Musculoskeletal: Reports: No Symptoms Skin: Reports: No Symptoms Neurological: Reports: No Symptoms Psychiatric: Reports: No Symptoms - Patient Data Vitals - Most Recent: Last Vital Signs Temp 98.6 F 12/07/19 08:00 Pulse 73 12/07/19 07:00 Resp 16 12/07/19 08:00 BP 143/78 H 12/07/19 08:00 Pulse Ox 96 12/07/19 05:59 Weight - Most Recent: 149 lb I&O - Last 24 Hours: Intake & Output 12/06/19 12/07/19 12/07/19 22:59 06:59 14:59 Intake Total 480 Output Total 50 300 Balance -50 180 Lab Results Last 24 Hours: Laboratory Results - last 24 hr 12/06/19 12/06/19 12/06/19 Range/Units 16:08 16:08 16:08 WBC 8.6 (4.5-11.0) K/uL RBC 4.43 (3.30-5.50) M/uL Hgb 13.2 (12.0-15.0) g/dL Hct 38.7 (36.0-48.0) % MCV 87 (80-98) fL MCH 30 (27-31) pg MCHC 34 (32-36) % Plt Count 172 (150-400) K/uL Neut % (Auto) 83 H (36-66) % Lymph % (Auto) 9 L (24-44) % Peach % (Auto) 7 H (2-6) % Eos % (Auto) 1 L (2-4) % Baso % (Auto) 0 (0-1) % PT (9.5-12.0) sec INR (0.80-1.20) Sodium 131 L (140-148) mmol/L Potassium 4.9 (3.6-5.2) mmol/L Chloride 99 L (100-108) mmol/L Carbon Dioxide 27 (21-32) mmol/L Anion Gap 9.9 (5.0-14.0) mmol/L BUN 20 H D (7-18) mg/dL Creatinine 1.3 H D (0.6-1.0) mg/dL Est Cr Clr Drug Dosing 25.20 mL/min Estimated GFR (MDRD) 40 L (>60) Glucose 191 H (74-106) mg/dL Calcium 11.0 H D (8.5-10.1) mg/dL Total Bilirubin 1.8 H (0.2-1.0) mg/dL AST 56 H D (15-37) U/L ALT 29 (12-78) U/L Alkaline Phosphatase 213 H (46-116) U/L Troponin I < 0.017 (0.000-0.056) ng/mL Total Protein 7.1 (6.4-8.2) g/dL Albumin 2.9 L (3.4-5.0) g/dL Globulin 4.2 H (2.3-3.5) g/dL Albumin/Globulin Ratio 0.7 L (1.2-2.2) 12/06/19 12/06/19 12/07/19 Range/Units 16:13 23:14 05:00 WBC 6.2 (4.5-11.0) K/uL RBC 4.13 (3.30-5.50) M/uL Hgb 12.3 (12.0-15.0) g/dL Hct 36.1 (36.0-48.0) % MCV 87 (80-98) fL MCH 30 (27-31) pg MCHC 34 (32-36) % Plt Count 129 L (150-400) K/uL Neut % (Auto) 76 H (36-66) % Lymph % (Auto) 16 L (24-44) % Peach % (Auto) 8 H (2-6) % Eos % (Auto) 0 L (2-4) % Baso % (Auto) 0 (0-1) % PT 16.5 H (9.5-12.0) sec INR 1.53 H (0.80-1.20) Sodium (140-148) mmol/L Potassium (3.6-5.2) mmol/L Chloride (100-108) mmol/L Carbon Dioxide (21-32) mmol/L Anion Gap (5.0-14.0) mmol/L BUN (7-18) mg/dL Creatinine (0.6-1.0) mg/dL Est Cr Clr Drug Dosing mL/min Estimated GFR (MDRD) (>60) Glucose (74-106) mg/dL Calcium (8.5-10.1) mg/dL Total Bilirubin (0.2-1.0) mg/dL AST (15-37) U/L ALT (12-78) U/L Alkaline Phosphatase (46-116) U/L Troponin I < 0.017 (0.000-0.056) ng/mL Total Protein (6.4-8.2) g/dL Albumin (3.4-5.0) g/dL Globulin (2.3-3.5) g/dL Albumin/Globulin Ratio (1.2-2.2) 12/07/19 Range/Units 05:00 WBC (4.5-11.0) K/uL RBC (3.30-5.50) M/uL Hgb (12.0-15.0) g/dL Hct (36.0-48.0) % MCV (80-98) fL MCH (27-31) pg MCHC (32-36) % Plt Count (150-400) K/uL Neut % (Auto) (36-66) % Lymph % (Auto) (24-44) % Peach % (Auto) (2-6) % Eos % (Auto) (2-4) % Baso % (Auto) (0-1) % PT (9.5-12.0) sec INR (0.80-1.20) Sodium 137 L (140-148) mmol/L Potassium 4.5 (3.6-5.2) mmol/L Chloride 106 (100-108) mmol/L Carbon Dioxide 22 (21-32) mmol/L Anion Gap 13.5 (5.0-14.0) mmol/L BUN 22 H (7-18) mg/dL Creatinine 0.9 (0.6-1.0) mg/dL Est Cr Clr Drug Dosing 36.41 mL/min Estimated GFR (MDRD) > 60 (>60) Glucose 142 H (74-106) mg/dL Calcium 10.0 (8.5-10.1) mg/dL Total Bilirubin 1.2 H (0.2-1.0) mg/dL AST 43 H (15-37) U/L ALT 22 (12-78) U/L Alkaline Phosphatase 163 H (46-116) U/L Troponin I (0.000-0.056) ng/mL Total Protein 5.6 L (6.4-8.2) g/dL Albumin 2.2 L (3.4-5.0) g/dL Globulin 3.4 (2.3-3.5) g/dL Albumin/Globulin Ratio 0.7 L (1.2-2.2) Med Orders - Current: Current Medications Acetaminophen (Tylenol) 650 mg PO Q4H PRN PRN Reason: Pain (Mild 1-3)/fever Baclofen (Lioresal) 10 mg PO DAILY [facility] Last Admin: 12/07/19 08:24 Dose: 10 mg Documented by: Cholecalciferol (Vitamin D3) 50 mcg PO DAILY [facility] Last Admin: 12/07/19 08:24 Dose: 50 mcg Documented by: Docusate Sodium (Colace) 100 mg PO BID PRN PRN Reason: Constipation Last Admin: 12/07/19 08:24 Dose: 100 mg Documented by: Sodium Chloride (Normal Saline) 1,000 mls @ 75 mls/hr IV ASDIRECTED [facility] Last Admin: 12/06/19 20:28 Dose: 75 mls/hr Documented by: Ondansetron HCl (Zofran Odt) 4 mg PO Q6H PRN PRN Reason: Nausea able to take PO Warfarin Sodium (Coumadin) 5 mg PO BEDTIME [facility] Last Admin: 12/06/19 21:16 Dose: 5 mg Documented by: Discontinued Medications Sodium Chloride (Normal Saline) 1,000 mls @ 300 mls/hr IV ASDIRECTED [facility] Last Admin: 12/06/19 17:29 Dose: 300 mls/hr Documented by: Sodium Chloride (Normal Saline) 1,000 mls @ 999 mls/hr IV ONETIME ONE Stop: 12/06/19 22:00 Last Admin: 12/06/19 21:05 Dose: 999 mls/hr Documented by: - Exam Quality Assessment: No: Supplemental Oxygen, Central Line/PICC General: Alert, Oriented, Cooperative, No Acute Distress Lungs: Clear to Auscultation, Normal Respiratory Effort Cardiovascular: Regular Rate, Regular Rhythm, No Murmurs GI/Abdominal Exam: Normal Bowel Sounds Sepsis Event Note - Evaluation Sepsis Screening Result: No Definite Risk - Focused Exam Vital Signs: Vital Signs Temp Pulse Resp BP Pulse Ox 12/07/19 08:00 98.6 F 16 143/78 H 12/07/19 07:00 73 15 140/40 L 12/07/19 05:59 14 141/42 H 96 12/07/19 05:00 17 148/55 H 96 12/07/19 04:00 18 145/46 H 95 12/07/19 03:00 16 125/41 L 93 L 12/07/19 02:00 14 130/44 L 94 L 12/07/19 01:00 16 129/45 L 94 L 12/07/19 00:00 16 110/36 L 96 12/06/19 23:13 97.6 F 14 120/35 L 96 12/06/19 22:00 11 L 122/44 L 96 12/06/19 21:53 95 - Problem List Review Problem List Initiated/Reviewed/Updated: Yes - My Orders Last 24 Hours: My Active Orders 12/06/19 18:07 Resuscitation Status Routine 12/06/19 18:56 Acetaminophen [TylenoL] 650 mg PO Q4H PRN Docusate Sodium [Colace] 100 mg PO BID PRN Ondansetron [Zofran ODT] 4 mg PO Q6H PRN Sodium Chloride 0.9% [Normal Saline] 1,000 ml IV ASDIRECTED 12/06/19 18:56 Patient Status [ADT] Routine Ambulate [RC] QID Ambulate [RC] QID Antiembolic Devices [RC] .Routine Height and Weight [RC] DAILY Intake and Output [RC] QSHIFT Oxygen Therapy [RC] PRN Pulse Oximetry [RC] PRN Up With Assistance [RC] ASDIRECTED Up to Chair [RC] QID VTE/DVT Education [RC] Per Unit Routine Vital Signs [RC] Q1H Sequential Compression Device [OM.PC] Per Unit Routine 12/06/19 21:00 Warfarin [Coumadin] 5 mg PO BEDTIME 12/07/19 09:00 Baclofen [Lioresal] 10 mg PO DAILY Cholecalciferol (Vitamin D3) [Vitamin D3] 50 mcg PO DAILY 12/08/19 06:15 CBC WITH AUTO DIFF [HEME] DAILY COMPREHENSIVE METABOLIC PN,CMP [CHEM] DAILY 12/09/19 06:15 CBC WITH AUTO DIFF [HEME] DAILY COMPREHENSIVE METABOLIC PN,CMP [CHEM] DAILY 12/10/19 06:15 CBC WITH AUTO DIFF [HEME] DAILY COMPREHENSIVE METABOLIC PN,CMP [CHEM] DAILY 12/11/19 06:15 CBC WITH AUTO DIFF [HEME] DAILY COMPREHENSIVE METABOLIC PN,CMP [CHEM] DAILY - Plan Plan:: Assessment and Plan: 1. HEENT No active issues 2. Cardiovascular Patient presented after an unresponsive episode. Per history this seems to be linked back to a medication change 2 months ago. Concerning to me is the escalation of episodes within the past week and there being more and more of these events in that time frame. The patient this week alone has had 3 episodes. The patient's diltiazem was held along with metoprolol. Since doing so the patient's HR have increasing HR to mid 70's. She has regained some alertness. She is clinically stable otherwise and making urine. - Restart Diltiazem at 120 mg po q day - Restart metoprolol at 25 mg po bid - Continue Anticoagulation - IV fluids - Close observation of vitals - If pressures trend below MAP 60 - Patient becomes unresponsive or obtunded - If hemodynamically unstable would favor transfer to outside facilities - Continue telemetry - Transfer out of ICU 3. Respiratory/Gastrointestinal Stable w/o active issues 4. Renal Stable w/o active issues 5. F/E/N Correct electrolytes as needed 6. Endocrine No active issues 7. Infectious Diseases No signs of COVID 19 or other illness 8. Neurological/Musculoskeletal Patient is mild to moderately demented. - PT eval - OT eval - OK to continue baclofen for now 9. Mental Health Stable except as above Disposition: Anticipate D/C 1-2 days with home RN care + home PT/OT or TCU Jurgen Driver M.D. 07 December 2019
[2019-12-07] MEDS: Sodium Chloride 0.9% 1,000 ML IV SCH (10:13)
[2019-12-07] MEDS ORDERED: Metoprolol Tartrate 25 MG Tab PO SCH (10:30)
[2019-12-07] MEDS ORDERED: Diltiazem 120 MG Cap.CD PO SCH (10:30)
[2019-12-07] MEDS ORDERED: Sodium Chloride 0.9% 1,000 ML IV ONE (12:43)
--- NOTE | 2019-12-07 13:01 | PCM.DCSUM1 ---
Discharge Summary - Hospital Course Free Text/Narrative:: Ms. Crystal De Oliveira is a 79 F admitted to [facility] on 12/06/2019. The patient presented to the ED via EMS after an episode of unresponsiveness. During that episode the patient's felt that "she had " and that "she was so floppy". He also thought he could not find a pulse during the event. The patient was noted, by EMS, to have a pulse of 30-35. The patient was brought the ED whereupon further evaluation was undertaken and admission requested. The patient was noted to have a continued HR in the low to mid 30's. She was, for the most part, hemodynamically stable throughout the stay until just about the time of transfer to the floor. At that time she began to drop her pressures into the low 90's systolic. This responded quickly to 1 L 0.9% NS bolus. She was transferred to the ICU, her antiarrhythmics (diltiazem 240 mg po q day and metoprolol 50 mg po bid ) were held. She did have a subsequent episode of decreased BP around 2200 on 12/05 and this too responded quickly to fluids. She had been noted to be oliguric from admission until about 0300 on 12/06 but by that time the patient had begun to produce some urine. On the AM of 12/07/2019 the patient had been noted to have HR in the 70-80 range and the rate was regular at that time. The decision was made at that point to restart the diltiazem at 120 mg po q day and the metoprolol at 50 mg po bid. Within 90 minutes of restarting the medication the patient again exhibited HR of 30-40 and began to have some lower pressures. Another 1 L bolus was started prior to transfer to [facility]. The decision, as noted above, was made to transfer the patient to [place] for Cardiology consultation. The concern is that while it is likely that this is medication effect, I am not able to effectively exclude the possibility of a significant conduction system abnormality such as Sick Sinus or the like. I think that the patient, particularly if she re-enters atrial fibrillation, may benefit from pacemaker placement. She is demented but this is adequately controlled at time of discharge. Diagnosis: Stroke: No - Discharge Data Discharge Date: 12/07/19 Discharge Disposition: DC/Tfer to Acute Hospital 02 Condition: Stable - Referral to Home Health Primary Care Physician: PCP None - Patient Summary/Data Consults: Consultations 12/07/19 10:03 OT Evaluation and Treatment [CONS] Routine Please Evaluate and Treat. OT Reason for Consult: ADL's This query below is only for informational purposes and is not editable. Admission Diagnosis/Problem: Bradycardia PT Evaluation and Treatment [CONS] Routine Please Evaluate and Treat. PT Reason for Consult: Strengthening This query below is only for informational purposes and is not editable. Admission Diagnosis/Problem: Bradycardia - Patient Instructions Diet: Usual Diet as Tolerated Activity: As Tolerated Driving: Do Not Drive - Discharge Plan *PRESCRIPTION DRUG MONITORING PROGRAM REVIEWED*: No *COPY OF PRESCRIPTION DRUG MONITORING REPORT IN PATIENT DIANE: No Home Medications: Home Meds Cholecalciferol (Vitamin D3) [Vitamin D3] 1 tab PO DAILY 12/15/17 [History] Warfarin Sodium [Jantoven] 5 mg PO BEDTIME 09/08/18 [History] Baclofen 10 mg PO DAILY 09/06/19 [History] Oxygen Therapy Mode: Room Air Forms: ED Department Discharge Referrals: PCP,None [Primary Care Provider] - - Discharge Summary/Plan Comment DC Time >30 min.: Yes - Patient Data Vitals - Most Recent: Last Vital Signs Temp 98.6 F 12/07/19 08:00 Pulse 36 L 12/07/19 12:00 Resp 18 12/07/19 12:00 BP 88/23 L 12/07/19 12:00 Pulse Ox 96 12/07/19 05:59 Weight - Most Recent: 149 lb I&O - Last 24 hours: Intake & Output 12/06/19 12/07/19 12/07/19 22:59 06:59 14:59 Intake Total 1050 Output Total 50 650 Balance -50 400 Lab Results - Last 24 hrs: Laboratory Results - last 24 hr 12/06/19 12/06/19 12/06/19 Range/Units 16:08 16:08 16:08 WBC 8.6 (4.5-11.0) K/uL RBC 4.43 (3.30-5.50) M/uL Hgb 13.2 (12.0-15.0) g/dL Hct 38.7 (36.0-48.0) % MCV 87 (80-98) fL MCH 30 (27-31) pg MCHC 34 (32-36) % Plt Count 172 (150-400) K/uL Neut % (Auto) 83 H (36-66) % Lymph % (Auto) 9 L (24-44) % Yancey % (Auto) 7 H (2-6) % Eos % (Auto) 1 L (2-4) % Baso % (Auto) 0 (0-1) % PT (9.5-12.0) sec INR (0.80-1.20) Sodium 131 L (140-148) mmol/L Potassium 4.9 (3.6-5.2) mmol/L Chloride 99 L (100-108) mmol/L Carbon Dioxide 27 (21-32) mmol/L Anion Gap 9.9 (5.0-14.0) mmol/L BUN 20 H D (7-18) mg/dL Creatinine 1.3 H D (0.6-1.0) mg/dL Est Cr Clr Drug Dosing 25.20 mL/min Estimated GFR (MDRD) 40 L (>60) Glucose 191 H (74-106) mg/dL Calcium 11.0 H D (8.5-10.1) mg/dL Total Bilirubin 1.8 H (0.2-1.0) mg/dL AST 56 H D (15-37) U/L ALT 29 (12-78) U/L Alkaline Phosphatase 213 H (46-116) U/L Troponin I < 0.017 (0.000-0.056) ng/mL Total Protein 7.1 (6.4-8.2) g/dL Albumin 2.9 L (3.4-5.0) g/dL Globulin 4.2 H (2.3-3.5) g/dL Albumin/Globulin Ratio 0.7 L (1.2-2.2) 12/06/19 12/06/19 12/07/19 Range/Units 16:13 23:14 05:00 WBC 6.2 (4.5-11.0) K/uL RBC 4.13 (3.30-5.50) M/uL Hgb 12.3 (12.0-15.0) g/dL Hct 36.1 (36.0-48.0) % MCV 87 (80-98) fL MCH 30 (27-31) pg MCHC 34 (32-36) % Plt Count 129 L (150-400) K/uL Neut % (Auto) 76 H (36-66) % Lymph % (Auto) 16 L (24-44) % Yancey % (Auto) 8 H (2-6) % Eos % (Auto) 0 L (2-4) % Baso % (Auto) 0 (0-1) % PT 16.5 H (9.5-12.0) sec INR 1.53 H (0.80-1.20) Sodium (140-148) mmol/L Potassium (3.6-5.2) mmol/L Chloride (100-108) mmol/L Carbon Dioxide (21-32) mmol/L Anion Gap (5.0-14.0) mmol/L BUN (7-18) mg/dL Creatinine (0.6-1.0) mg/dL Est Cr Clr Drug Dosing mL/min Estimated GFR (MDRD) (>60) Glucose (74-106) mg/dL Calcium (8.5-10.1) mg/dL Total Bilirubin (0.2-1.0) mg/dL AST (15-37) U/L ALT (12-78) U/L Alkaline Phosphatase (46-116) U/L Troponin I < 0.017 (0.000-0.056) ng/mL Total Protein (6.4-8.2) g/dL Albumin (3.4-5.0) g/dL Globulin (2.3-3.5) g/dL Albumin/Globulin Ratio (1.2-2.2) 12/07/19 Range/Units 05:00 WBC (4.5-11.0) K/uL RBC (3.30-5.50) M/uL Hgb (12.0-15.0) g/dL Hct (36.0-48.0) % MCV (80-98) fL MCH (27-31) pg MCHC (32-36) % Plt Count (150-400) K/uL Neut % (Auto) (36-66) % Lymph % (Auto) (24-44) % Yancey % (Auto) (2-6) % Eos % (Auto) (2-4) % Baso % (Auto) (0-1) % PT (9.5-12.0) sec INR (0.80-1.20) Sodium 137 L (140-148) mmol/L Potassium 4.5 (3.6-5.2) mmol/L Chloride 106 (100-108) mmol/L Carbon Dioxide 22 (21-32) mmol/L Anion Gap 13.5 (5.0-14.0) mmol/L BUN 22 H (7-18) mg/dL Creatinine 0.9 (0.6-1.0) mg/dL Est Cr Clr Drug Dosing 36.41 mL/min Estimated GFR (MDRD) > 60 (>60) Glucose 142 H (74-106) mg/dL Calcium 10.0 (8.5-10.1) mg/dL Total Bilirubin 1.2 H (0.2-1.0) mg/dL AST 43 H (15-37) U/L ALT 22 (12-78) U/L Alkaline Phosphatase 163 H (46-116) U/L Troponin I (0.000-0.056) ng/mL Total Protein 5.6 L (6.4-8.2) g/dL Albumin 2.2 L (3.4-5.0) g/dL Globulin 3.4 (2.3-3.5) g/dL Albumin/Globulin Ratio 0.7 L (1.2-2.2) Med Orders - Current: Current Medications Acetaminophen (Tylenol) 650 mg PO Q4H PRN PRN Reason: Pain (Mild 1-3)/fever Baclofen (Lioresal) 10 mg PO DAILY [facility] Last Admin: 12/07/19 08:24 Dose: 10 mg Documented by: Cholecalciferol (Vitamin D3) 50 mcg PO DAILY [facility] Last Admin: 12/07/19 08:24 Dose: 50 mcg Documented by: Docusate Sodium (Colace) 100 mg PO BID PRN PRN Reason: Constipation Last Admin: 12/07/19 08:24 Dose: 100 mg Documented by: Sodium Chloride (Normal Saline) 1,000 mls @ 75 mls/hr IV ASDIRECTED [facility] Last Admin: 12/07/19 10:13 Dose: 75 mls/hr Documented by: Sodium Chloride (Normal Saline) 1,000 mls @ 250 mls/hr IV .BOLUS ONE Stop: 12/07/19 16:42 Ondansetron HCl (Zofran Odt) 4 mg PO Q6H PRN PRN Reason: Nausea able to take PO Warfarin Sodium (Coumadin) 5 mg PO BEDTIME [facility] Last Admin: 12/06/19 21:16 Dose: 5 mg Documented by: Discontinued Medications Diltiazem HCl (Cardizem Cd) 120 mg PO DAILY [facility] Last Admin: 12/07/19 10:19 Dose: 120 mg Documented by: Sodium Chloride (Normal Saline) 1,000 mls @ 300 mls/hr IV ASDIRECTED [facility] Last Admin: 12/06/19 17:29 Dose: 300 mls/hr Documented by: Sodium Chloride (Normal Saline) 1,000 mls @ 999 mls/hr IV ONETIME ONE Stop: 12/06/19 22:00 Last Admin: 12/06/19 21:05 Dose: 999 mls/hr Documented by: Metoprolol Tartrate (Lopressor) 25 mg PO BID [facility] Last Admin: 12/07/19 10:18 Dose: 25 mg Documented by:
== END 2019-12-07 14:30 | DRG 310 ==
LOC: JP.ED 14:57 → JP.ICU 18:04
PROVIDERS: ADMIT Family Medicine; ATTEND Family Medicine
DX: I48.91 Unspecified atrial fibrillation (principal); R55 Syncope and collapse; I49.5 Sick sinus syndrome; F03.90 Unspecified dementia, unspecified severity, without behavioral disturbance, psychotic disturbance, mood disturbance, and anxiety; E83.52 Hypercalcemia; R00.1 Bradycardia, unspecified; H54.7 Unspecified visual loss; I10 Essential (primary) hypertension; Z95.0 Presence of cardiac pacemaker; Z79.01 Long term (current) use of anticoagulants; Z79.899 Other long term (current) drug therapy; Z88.8 Allergy status to other drugs, medicaments and biological substances; Z90.710 Acquired absence of both cervix and uterus
CPT/HCPCS: 36415; 80053; 84484; 85025; 85610; 93005; J7030; 96360; 97165-GO; 99285-25; A9270-GY